=== PATIENT | female | born 1985 | race Caucasian/White ===

== ENCOUNTER 2022-06-03 21:38 | Emergency (ER) | payer MEDICAID, OTHER ==
[~2022-06-03] VITALS: Ht 162.6 cm; Wt 54.5 kg
[~2022-06-03 21:38] MED LIST: DOCU-378 PO; HYDR-3965 PO; IBUP-2070 PO; THYR60TA2 PO
[2022-06-03 21:39] VITALS: BP 128/73
[2022-06-03 21:47] LABS: APPEARANCE,URINE CLEAR (CLEAR); BILIRUBIN,URINE NEGATIVE (NEGATIVE); GLUCOSE, URINE (UA) NEGATIVE (NEGATIVE); KETONES,URINE NEGATIVE (NEGATIVE); LEUKOCYTE ESTERASE ,URINE LARGE (NEGATIVE); NITRATE,URINE NEGATIVE (NEGATIVE); OCCULT BLOOD,URINE LARGE (NEGATIVE); PROTEIN,URINE TRACE mg/dL (NEGATIVE); SPECIFIC GRAVITIY, URINE 1.004 (1.003-1.030); UROBILINOGEN,URINE <=1.0 mg/dL (<=1.0)
[2022-06-03 21:56] LABS: BACTERIA,URINE Moderate /HPF (None Seen); OTHER CASTS, URINE WBC CASTS 1+ /LPF (None Seen); SQUAMOUS EPITHELIAL CELL,UR Few /LPF (None Seen); WBC,URINE 26-50 /HPF (0-5)
[2022-06-03] MEDS ORDERED: CefTRIAXone SODIUM 1 GM/VIAL IM ONE (22:15)
[2022-06-03] MEDS ORDERED: LIDOCAINE/PF 1% 2 ML VIAL IM ONE (22:15)
[2022-06-03] MEDS ORDERED: PHENAZOPYRIDINE HCL 100 MG TABLET PO ONE (22:45)
[2022-06-04] MEDS ORDERED: OxyCODONE HCL/ACETAMINOPHEN 5-325 MG TABLET PO ONE
[2022-06-04] MEDS ORDERED: SULF-261 PO (00:01)
== END 2022-06-04 00:12 | disposition home or self-care (01) ==
LOC: EMS 21:39
DX: N39.0 Urinary tract infection, site not specified (principal); E03.9 Hypothyroidism, unspecified; Z98.51 Tubal ligation status
CPT/HCPCS: 99283; 81001; 84703; 87086; 87186; 96372; J0696; J3490; 99284